=== PATIENT | female | born 1950 | race Caucasian/White ===

== ENCOUNTER 2017-06-02 06:01 | Day surgery (SDC) | payer MEDICARE, OTHER ==
[~2017-06-02] VITALS: Ht 167.6 cm; Wt 57.7 kg
[~2017-06-02 06:01] MED LIST: FERR1TAB21 PO; METO50 PO; PRED5 PO; SODIUM CHLORIDE 0.9% 1,000 ML IV ONE
[2017-06-02] MEDS ORDERED: LIDOCAINE HCL 4% 50 ML SOLUTION TP ONE (06:02)
[2017-06-02] MEDS ORDERED: BENZOCAINE 20% 50 MCG/SPRAY 57 GM TP ONE (06:02)
[2017-06-02] MEDS ORDERED: LIDOCAINE HCL 2% 30 ML JELLY TP ONE (06:02)
[2017-06-02] MEDS ORDERED: ALBUTEROL SULFATE 2.5 MG/0.5 ML NEB SOLUTION NEB ONE (06:02)
[2017-06-02] MEDS ORDERED: SODIUM CHLORIDE 0.9% 1,000 ML IV ONE (06:05)
[2017-06-02] MEDS ORDERED: MIDAZOLAM HCL 2 MG/2 ML VIAL ONE (07:45)
[2017-06-02] MEDS ORDERED: FentaNYL CITRATE-PF 100 MCG/2 ML VIAL ONE (07:45)
[2017-06-02] MEDS ORDERED: MethylPREDNISolone SOD SUCC 125 MG/2 ML VIAL IVP ONE (08:45)
[2017-06-02] MEDS ORDERED: MethylPREDNISolone SOD SUCC 125 MG/2 ML VIAL ONE (08:48)
[2017-06-02] MEDS ORDERED: OXYGEN THERAPY IH SCH (20:00)
== END 2017-06-02 09:40 | disposition home or self-care (01) ==
LOC: SURGERY 06:01
PROVIDERS: ATTEND Internal Medicine Critical Care Medicine
DX: J38.4 Edema of larynx (principal); B37.0 Candidal stomatitis; I10 Essential (primary) hypertension; Z90.12 Acquired absence of left breast and nipple; Z98.890 Other specified postprocedural states
CPT/HCPCS: 31623; 31624; 71010; 87015 ×2; 87070; 87101; 87147; 87205; 87220; 88108; 88312; J2250; J2930; J3010; J7030